=== PATIENT | female | born 1935 | race Caucasian/White ===

== ENCOUNTER → 2017-12-18 | Outpatient (CLI) | payer MEDICARE, BC ==
[~2017-12-18] MED LIST: ALDACTONE25 MG PO; ALLEGRA180 MG PO; ASPIR 8181 M1 PO; Aldactone PO; CELEBREX200 MG PO; CELEXA20 MG PO; Citracal W/Vitamin D PO; Coumadin dosing per PO; Feosol PO; GABAPENTIN100 MG PO; Levothroid,Synthroid PO; MICARDIS80 MG PO; OMEGA 3-6-91200 MG PO; SYNTHROID25 MCG PO; Senokot S,Pericolace PO; Vicodin,Norco 5/325 PO; ZEBETA5 MG PO; Zebeta PO; celeXA PO
== END | disposition home or self-care (01) ==
LOC: CDC 12:18
DX: Z01.810 Encounter for preprocedural cardiovascular examination (principal); R94.31 Abnormal electrocardiogram [ECG] [EKG]
CPT/HCPCS: 93000

== ENCOUNTER 2018-01-27 11:23 | Emergency (ER) | payer OTHER, BC ==
[~2018-01-27] VITALS: Ht 157.5 cm; Wt 79.1 kg
[2018-01-27 12:00] LABS: BASOPHIL COUNT 0.1 K/uL (0-0.1); EOSINOPHIL (%) 2.2 % (0-5); EOSINOPHIL COUNT 0.2 K/uL (0-0.3); HEMATOCRIT 36.8 % (36.0-46.0); IMMATURE GRANULOCYTE (%) 0.3 % (0.0-0.7); LYMPHOCYTE (%) 17.3 % (15-42); LYMPHOCYTE COUNT 1.3 K/uL (1.0-2.8); MCH 30.5 PG (29.0-34.0); MCHC 32.6 G/DL (30.0-36.0); MCV 93.6 FL (83-99); MONOCYTE (%) 9.7 % (3-12); MONOCYTE COUNT 0.7 K/uL (0-0.8); NEUTROPHIL (%) 69.5 % (45-76); NEUTROPHIL COUNT 5.1 K/uL (1.8-6.4); PLATELET COUNT 330 K/uL (156-360); RBC DIS.WIDTH-CV 13.5 % (11.8-14.6); RBC DIS.WIDTH-SD 46.8 % (39-53); RED BLOOD COUNT 3.93 M/uL (3.80-5.20); WHITE BLOOD COUNT 7.3 K/uL (4.1-10.2)
[2018-01-27 12:11] LABS: CHLORIDE 105 mEq/L (99-109); POTASSIUM 4.7 mEq/L (3.7-5.4); SODIUM 140 mEq/L (136-147)
[2018-01-27 12:12] LABS: GLUCOSE 94 mg/dL (70-99)
[2018-01-27 12:16] LABS: CREATININE 1.2 mg/dL (0.6-1.3); GFR ESTIMATE (CALCULATED) 45 mL/min/
[2018-01-27 12:17] LABS: UREA NITROGEN (BUN) 25 mg/dL (9-23)
[2018-01-27] MEDS ORDERED: ANTIVERT25 MG PO (12:44)
[2018-01-27 13:20] VITALS: BP 160/72
== END 2018-01-27 13:42 | disposition home or self-care (01) ==
LOC: EME 11:23
PROVIDERS: Emergency Medicine
DX: R42 Dizziness and giddiness (principal); I10 Essential (primary) hypertension; Z79.82 Long term (current) use of aspirin
CPT/HCPCS: 70450; 80048; 85025; 93005; 99281; 99285